=== PATIENT | male | born 1985 | race Caucasian/White ===

== ENCOUNTER 2024-04-05 08:38 | Emergency (ER) | payer SELFPAY ==
[~2024-04-05] VITALS: Ht 172.7 cm; Wt 80.0 kg
[2024-04-05 08:41] VITALS: O2SAT 100
[2024-04-05] MEDS: SODIUM CHLORIDE 0.9% 1,000 ML IV ONE (09:57)
[2024-04-05 12:56] VITALS: BP 115/75; PULSE 76; RESP 18; TEMP 97.5
== END 2024-04-05 13:15 | disposition home or self-care (01) ==
LOC: ER 08:38
DX: R41.82 Altered mental status, unspecified (principal); E11.9 Type 2 diabetes mellitus without complications
CPT/HCPCS: 82962; 96360; 99283; J7030; Z7610